=== PATIENT | male | born 1970 | race Caucasian/White ===

== ENCOUNTER 2021-06-23 23:58 | Emergency (ER) | payer SELFPAY ==
[2021-06-24 00:44] LABS: HEMOGLOBIN 14.8 gm/dl (14.0-17.5); RED BLOOD COUNT 4.86 M/UL (4.20-5.50)
[2021-06-24 01:07] LABS: BUN/CREATININE RATIO 12 (0-10)
== END 2021-06-24 01:50 | disposition home or self-care (01) ==
LOC: ER1 23:58
PROVIDERS: Physician Assistant Medical
DX: R42 Dizziness and giddiness (principal); M25.511 Pain in right shoulder; M25.512 Pain in left shoulder; R53.1 Weakness; Z20.822 Contact with and (suspected) exposure to COVID-19
CPT/HCPCS: 71045; 80053; 83605; 85025; 87040; 93005; 96374; 99284; J2405; U0002